=== PATIENT | male | born 1995 | race African-American/Black ===

== ENCOUNTER 2023-02-24 14:25 | Emergency (ER) | payer BC ==
[~2023-02-24] VITALS: Ht 188 cm; Wt 97.5 kg
[2023-02-24 14:40] VITALS: O2SAT 99
[2023-02-24] MEDS ORDERED: NAPR-681 MT (16:47)
[2023-02-24] MEDS ORDERED: T3 PO (16:47)
[2023-02-24 17:48] VITALS: BP 116/78; PULSE 84; RESP 16; TEMP 98.1
== END 2023-02-24 18:23 | disposition home or self-care (01) ==
LOC: ER 14:44
DX: S86.011A Strain of right Achilles tendon, initial encounter (principal); Z98.890 Other specified postprocedural states; X58.XXXA Exposure to other specified factors, initial encounter; Y93.89 Activity, other specified; Y92.89 Other specified places as the place of occurrence of the external cause; Y99.8 Other external cause status
CPT/HCPCS: 73610; 99283; Z7610